=== PATIENT | male | born 1995 ===

== ENCOUNTER 2021-08-26 09:52 | Inpatient (IN) | payer MEDICAID ==
[~2021-08-26] VITALS: Ht 170.2 cm; Wt 66.4 kg
[2021-08-26 11:19] LABS: BASOPHILS % (AUTO) 0.5 % (0.0-2.0); EOSINOPHILS % (AUTO) 0.4 % (1.0-6.0); HEMATOCRIT 42.7 % (41-53); HEMOGLOBIN 14.3 g/dL (13.5-17.5); LYMPHOCYTES # (AUTO) 1.2 K/uL (1.0-4.8); LYMPHOCYTES % (AUTO) 15.6 % (22.0-44.0); MEAN CORPUSCULAR HEMOGLOBIN 30.7 pg (26.0-34.0); MEAN CORPUSCULAR HGB CONC 33.4 G/dL (31.0-37.0); MEAN CORPUSCULAR VOLUME 92 fL (80-100); MONOCYTES # (AUTO) 0.5 K/uL (0.1-1.0); MONOCYTES % (AUTO) 6.3 % (2.0-9.0); NEUTROPHILS # (AUTO) 5.8 K/uL (1.8-7.7); NEUTROPHILS % (AUTO) 77.2 % (40.0-70.0); PLATELET COUNT (AUTO) 310 K/uL (150-450); RED BLOOD CELL COUNT(AUTO) 4.64 MIL/uL (4.50-5.90); RED CELL DISTRIBUTION WIDTH 13.4 % (11.5-14.5)
[2021-08-26 11:27] LABS: ANION GAP 15 mmol/L (8-16); CALCIUM, TOTAL 9.3 mg/dL (8.8-10.5); CARBON DIOXIDE 24 mmol/L (22-29); CHLORIDE 99 mmol/L (98-107); CREATININE 0.93 mg/dL (0.60-1.30); GLOMERULAR FILTR. RATE CALC > 60 mL/min (>60); GLUCOSE,RANDOM 72 mg/dL (70-110); POTASSIUM 3.3 mmol/L (3.5-5.1); SODIUM SERUM 138 mmol/L (136-145); UREA NITROGEN, BLOOD 17 mg/dL (7-18)
[2021-08-26 11:30] LABS: ALANINE AMINOTRANSFERASE 31 U/L (12-78); ALBUMIN 4.6 g/dL (3.4-5.0); ALKALINE PHOSPHATASE 86 U/L (46-116); ASPARTATE AMINOTRANSFERASE 23 U/L (15-37); BILIRUBIN,TOTAL 1.8 mg/dL (0.1-1.0); TOTAL PROTEIN, SERUM 8.4 g/dL (6.4-8.2)
[2021-08-26] MEDS ORDERED: ZOLPIDEM TARTRATE 10 MG TABLET PO PRN (13:00)
[2021-08-26] MEDS ORDERED: LORazepam 2 MG TABLET PO PRN (13:00)
[2021-08-26] MEDS ORDERED: HALOPERIDOL 5 MG TABLET PO PRN (13:00)
[2021-08-26 14:09] LABS: COVID AG,FIA SOURCE NASOPHARYNGEAL
[2021-08-26 16:50] VITALS: BP 107/67
[2021-08-26] MEDS ORDERED: HALOPERIDOL LACTATE 5 MG/ML VIAL ONE (22:37)
[2021-08-26] MEDS ORDERED: HALOPERIDOL LACTATE 5 MG/ML VIAL IM ONE (22:45)
[2021-08-26] MEDS ORDERED: DiphenhydrAMINE HCL 50 MG/ML VIAL IM ONE (22:45)
[2021-08-26] MEDS ORDERED: LORazepam 2 MG/ML VIAL IM ONE (22:45)
[2021-08-27] MEDS ORDERED: LOPERAMIDE HCL 2 MG CAPSULE PO PRN (10:30)
[2021-08-27] MEDS ORDERED: CloNIDine HCL 0.1 MG TABLET PO PRN (10:30)
[2021-08-27] MEDS ORDERED: ONDANSETRON HCL 4 MG TABLET PO PRN (10:30)
[2021-08-27] MEDS ORDERED: PETROLATUM,WHITE 28 GM JELLY TP PRN (10:30)
[2021-08-27] MEDS ORDERED: MAG HYDROX/AL HYDROX/SIMETH ES 30 ML SUSPENSION UDCUP PO PRN (10:30)
[2021-08-27] MEDS ORDERED: GuaiFENesin/D-METHORPHAN [SUGAR-FREE] 200-20MG/10 ML SYRUP UDCUP PO PRN (10:30)
[2021-08-27] MEDS ORDERED: IBUPROFEN 400 MG TABLET PO PRN (10:30)
[2021-08-27] MEDS ORDERED: NICOTINE 14 MG/24 HOUR PATCH TD PRN (10:30)
[2021-08-27] MEDS ORDERED: ACETAMINOPHEN 325 MG TABLET PO PRN (10:30)
[2021-08-27] MEDS ORDERED: MAGNESIUM HYDROXIDE SUSPENSION 30 ML UDCUP PO PRN (10:30)
[2021-08-27] MEDS ORDERED: ALBUTEROL SULFATE HFA 90 MCG/PUFF 8 GM INHALER IH PRN (10:30)
[2021-08-27] MEDS ORDERED: DOCUSATE SODIUM 100 MG CAPSULE PO PRN (10:30)
[2021-08-27] MEDS: OLANZapine 5 MG TABLET PO SCH ×2 (15:02→21:00)
[2021-08-27 16:25] VITALS: BP 107/70
[2021-08-28] MEDS: OLANZapine 5 MG TABLET PO SCH ×2 (08:15→20:24)
[2021-08-28 08:24] VITALS: BP 141/88
[2021-08-28 16:10] VITALS: BP 126/91
[2021-08-29 08:11] VITALS: BP 138/95
[2021-08-29] MEDS: OLANZapine 5 MG TABLET PO SCH ×2 (10:24→20:33)
[2021-08-30 02:48] VITALS: BP 96/66
[2021-08-30] MEDS: OLANZapine 5 MG TABLET PO SCH ×2 (08:11→20:16)
[2021-08-30 08:52] VITALS: BP 123/77
[2021-08-30 16:08] VITALS: BP 117/70
[2021-08-31 08:05] VITALS: BP 172/86
[2021-08-31] MEDS: OLANZapine 5 MG TABLET PO SCH ×2 (08:53→20:25)
[2021-08-31 16:03] VITALS: BP 105/76
[2021-09-01 08:02] VITALS: BP 136/87
[2021-09-01] MEDS: OLANZapine 5 MG TABLET PO SCH ×2 (08:15→20:12)
[2021-09-01 16:08] VITALS: BP 119/78
[2021-09-02 05:53] LABS: COVID AG,FIA SOURCE NASAL SWAB
[2021-09-02] MEDS: OLANZapine 5 MG TABLET PO SCH ×2 (08:30→20:39)
[2021-09-02 08:53] VITALS: BP 148/89
[2021-09-02 16:06] VITALS: BP 148/89
[2021-09-03] MEDS: OLANZapine 5 MG TABLET PO SCH ×2 (08:30→20:03)
[2021-09-03 09:11] VITALS: BP 118/80
[2021-09-03 17:41] VITALS: BP 125/70
[2021-09-04 08:55] VITALS: BP 140/93
[2021-09-04] MEDS: OLANZapine 5 MG TABLET PO SCH ×2 (09:34→20:20)
[2021-09-04 16:02] VITALS: BP 119/78
[2021-09-05 08:04] VITALS: BP 124/69
[2021-09-05] MEDS: OLANZapine 5 MG TABLET PO SCH (08:28)
[2021-09-05] MEDS ORDERED: OLAN5TAB52 PO (09:58)
== END 2021-09-05 09:55 | disposition home or self-care (01) | DRG 750 ==
LOC: EMS 09:52 → 3EI 13:55 → 3EC 21:17
PROVIDERS: ADMIT Psychiatry & Neurology Child & Adolescent Psychiatry; ATTEND Psychiatry & Neurology Child & Adolescent Psychiatry
DX: F20.0 Paranoid schizophrenia (principal); G93.40 Encephalopathy, unspecified; R45.851 Suicidal ideations; E87.6 Hypokalemia; F41.9 Anxiety disorder, unspecified; G47.00 Insomnia, unspecified; Z20.822 Contact with and (suspected) exposure to COVID-19; Z91.030 Bee allergy status
CPT/HCPCS: 80053; 85025; 99285; G0480; J1200; J1630; J2060